=== PATIENT | female | born 1970 | race Caucasian/White ===

== ENCOUNTER → 2016-04-20 17:14 | Outpatient (CLI) | payer BC | END | disposition home or self-care (01) | LOC: D.MAMMO 16:00 | DX: Z12.31 Encounter for screening mammogram for malignant neoplasm of breast (principal) ==

== ENCOUNTER → 2016-05-31 16:19 | Outpatient (CLI) | payer MEDICAID | END | disposition home or self-care (01) | LOC: D.MAMMO 10:00 | DX: R92.8 Other abnormal and inconclusive findings on diagnostic imaging of breast (principal) ==

== ENCOUNTER 2018-04-19 08:00 | Outpatient (CLI) | payer BC | END 2018-04-19 09:00 | disposition home or self-care (01) | LOC: D.MAMMO 08:00 | DX: Z12.31 Encounter for screening mammogram for malignant neoplasm of breast (principal) ==

== ENCOUNTER 2018-06-28 09:09 | Emergency (ER) | payer BC ==
[~2018-06-28] VITALS: Ht 162.6 cm; Wt 92.7 kg
[2018-06-28 09:19] VITALS: Ht 162.6 cm; Wt 92.7 kg
[2018-06-28 12:39] VITALS: BP 131/74
== END 2018-06-28 12:39 | disposition home or self-care (01) ==
LOC: D.ER 09:09
DX: G89.18 Other acute postprocedural pain (principal)

== ENCOUNTER 2019-12-24 18:00 | Outpatient (CLI) | payer BC ==
[2018-06-28 09:19] VITALS: BMI 35.1
== END 2019-12-24 23:59 | disposition home or self-care (01) ==
LOC: D.MAMMO 18:00
PROVIDERS: ATTEND Internal Medicine
DX: Z12.31 Encounter for screening mammogram for malignant neoplasm of breast (principal)